=== PATIENT | male | born 1975 | race Asian ===

== ENCOUNTER 2021-05-29 08:00 | Outpatient (CLI) | payer SELFPAY ==
[2021-05-29 20:15] LABS: ALBUMIN 4.3 g/dL (3.2-5.5); ALBUMIN/GLOBULIN RATIO 1.4 (1.0-2.2); BILIRUBIN,TOTAL 0.6 mg/dL (0.2-1.0); CALCIUM 9.1 mg/dL (8.5-10.3); CREATININE 0.9 mg/dL (0.6-1.2); POTASSIUM 3.5 mmol/L (3.5-5.0); TOTAL PROTEIN 7.4 g/dL (6.7-8.2)
[2021-05-29 20:28] LABS: THYROID STIMULATING HORMONE 3.34 uIU/mL (0.34-5.60)
== END 2021-05-29 23:59 ==
LOC: LAB.S 08:00
PROVIDERS: ATTEND Emergency Medicine
DX: F32.A Depression, unspecified (principal)
CPT/HCPCS: 36415; 80053; 84443; 85025